=== PATIENT | female | born 1990 | race Caucasian/White ===

== ENCOUNTER 2017-06-06 03:43 | Emergency (ER) | payer OTHER ==
[~2017-06-06] VITALS: Ht 167.6 cm; Wt 55.0 kg
[~2017-06-06 03:43] MED LIST: Z.0.NO CURRENT MEDS
[2017-06-06 03:49] VITALS: BP 134/81; PULSE 99; RESP 18; TEMP 98.1; O2SAT 98
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
[2017-06-06] MEDS ORDERED: SODIUM CHLOR 0.9% 1000 ML INJ 1,000 ML IV ONE (04:15)
[2017-06-06 04:29] VITALS: RESP 18; O2SAT 97
[2017-06-06 04:29] LABS: BASOPHIL % 0.6 % (0.0-2.0); EOSINOPHIL # 0.1 TH/MM3 (0-0.4); EOSINOPHIL % 1.6 % (0.0-4.0); HEMATOCRIT 32.5 % (35.0-46.0); HEMOGLOBIN 11.1 GM/DL (11.6-15.3); LYMPH % 39.6 % (9.0-44.0); LYMPHOCYTE # 1.8 TH/MM3 (1.0-4.8); MEAN CELL VOLUME 93.8 FL (80.0-100.0); MEAN CORPUSCULAR HGB CONC 34.1 % (32.0-36.0); MEAN PLATELET VOLUME 7.9 FL (7.0-11.0); MONO % 14.2 % (0.0-8.0); MONOCYTE # 0.7 TH/MM3 (0-0.9); PLATELET COUNT 185 TH/MM3 (150-450); RED BLOOD COUNT 3.46 MIL/MM3 (4.00-5.30); RED CELL DISTRIBUTION WIDTH 13.4 % (11.6-17.2); WHITE BLOOD COUNT 4.6 TH/MM3 (4.0-11.0)
[2017-06-06 04:41] LABS: PROTHROMBIN TIME - PATIENT 10.3 SEC (9.8-11.6)
[2017-06-06 04:45] VITALS: BP 121/77; PULSE 96; RESP 18; O2SAT 97
[2017-06-06 04:46] LABS: ALBUMIN 3.3 GM/DL (3.4-5.0); ALT (GPT) 95 U/L (10-53); AST (GOT) 54 U/L (15-37); BICARBONATE 24.6 MEQ/L (21.0-32.0); BLOOD UREA NITROGEN 18 MG/DL (7-18); CALCIUM 8.1 MG/DL (8.5-10.1); CHLORIDE 110 MEQ/L (98-107); CREATININE 0.77 MG/DL (0.50-1.00); GLOMERULAR FILTRATION RATE 91 ML/MIN (>89); GLUCOSE,RANDOM 86 MG/DL (74-106); MAGNESIUM 2.2 MG/DL (1.5-2.5); SODIUM (NA) 142 MEQ/L (136-145)
[2017-06-06 04:48] LABS: ALKALINE PHOSPHATASE 89 U/L (45-117); TOTAL BILIRUBIN ADULT 0.4 MG/DL (0.2-1.0); TOTAL PROTEIN 7.3 GM/DL (6.4-8.2)
[2017-06-06 04:50] LABS: ACETAMINOPHEN LESS THAN 2.0 MCG/ML (10.0-30.0)
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
[2017-06-06] MEDS ORDERED: IBUP-232 PO (06:00)
[2017-06-06] MEDS ORDERED: ACETAMINOPHEN 325 MG TAB PO ONE (06:00)
--- NOTE | 2017-06-06 19:02 | EKG ---
Date Performed: 06/06/2017 Time Performed: 04:11:41 PTAGE: 27 years EKG: Sinus rhythm WITH SINUS ARRHYTHMIA Since previous tracing, no significant change noted NORMAL ECG PREVIOUS TRACING : 12/31/2011 21.25 DOCTOR: Darnell Chowdhury Interpretating Date/Time 06/06/2017 19:00:58
== END 2017-06-06 06:41 ==
LOC: NEPC 03:43
DX: S42.402A Unspecified fracture of lower end of left humerus, initial encounter for closed fracture (principal); F17.200 Nicotine dependence, unspecified, uncomplicated; J45.909 Unspecified asthma, uncomplicated; B19.20 Unspecified viral hepatitis C without hepatic coma; V47.0XXA Car driver injured in collision with fixed or stationary object in nontraffic accident, initial encounter; Y92.410 Unspecified street and highway as the place of occurrence of the external cause
CPT/HCPCS: 29105; 71045; 72110; 73080; 73502; 80053; 80307; 83735; 84703; 85025; 85610; 85730; 93005; 96360; 99285; J7030